=== PATIENT | male | born 1975 | race Caucasian/White ===

== ENCOUNTER 2021-03-06 20:25 | Emergency (ER) | payer BC ==
[~2021-03-06] VITALS: Ht 172.7 cm; Wt 81.2 kg
[2021-03-06 20:52] LABS: BASO # 0.1 10*3/uL (0.0-0.1); BASO % 0.6 % (0.0-1.0); EOS # 0.1 10*3/uL (0.0-0.4); EOS % 1.4 % (1.0-4.0); HEMATOCRIT 42.5 % (42.0-52.0); LYMPH # 1.8 10*3/uL (1.3-4.4); LYMPH % 22.3 % (27.0-41.0); MEAN CELL VOLUME 85.3 fl (80.0-94.0); MEAN CORPUSCULAR HGB 28.5 pg (27.0-31.0); MEAN CORPUSCULAR HGB CONC 33.4 g/dl (33.0-37.0); MEAN PLATELET VOLUME 10.3 fl (9.6-12.3); MONO # 0.8 10*3/uL (0.1-1.0); MONO % 9.9 % (3.0-9.0); NEUT # 5.3 10*3/uL (2.3-7.9); NEUT % 65.6 % (47.0-73.0); PLATELET COUNT AUTOMATED 276 10*3/uL (130-400); RED BLOOD COUNT 4.98 10*6/uL (4.50-5.90); RED CELL DISTRI WIDTH 12.9 % (0-14.5); WHITE BLOOD COUNT 8.1 10*3/uL (4.8-10.8)
[2021-03-06 21:13] LABS: ALBUMIN 3.3 gm/dl (3.1-4.5); ALKALINE PHOSPHATASE 91 U/L (45-117); BUN 20 mg/dl (7-24); CHLORIDE 106 mmol/L (98-107); CREATININE 1.05 mg/dL (0.70-1.30); POTASSIUM 3.6 mmol/L (3.5-5.1); SGOT/AST 34 IU/L (3-35); SGPT/ALT 64 U/L (12-78); SODIUM 140 mmol/L (136-145); TOTAL PROTEIN 6.9 gm/dL (6.4-8.2)
[2021-03-06 21:18] LABS: TROPONIN I < 0.015 ng/ml (<0.045)
== END 2021-03-07 01:11 | disposition home or self-care (01) ==
LOC: ED 20:25
PROVIDERS: Emergency Medicine
DX: R07.89 Other chest pain (principal)